=== PATIENT | female | born 1955 | race Caucasian/White ===

== ENCOUNTER 2021-10-04 14:00 | Outpatient (CLI) | payer MEDICARE | END 2021-10-04 14:01 | disposition home or self-care (01) | LOC: CSHWCC 14:00 | PROVIDERS: ATTEND Nurse Practitioner Family | DX: S81.801D Unspecified open wound, right lower leg, subsequent encounter (principal); R60.0 Localized edema | CPT/HCPCS: 11042; 11045; 97139; G0463; 99203 ==

== ENCOUNTER 2021-10-22 14:56 | Outpatient (CLI) | payer MEDICARE | END 2021-10-22 14:57 | disposition home or self-care (01) | LOC: CSHWCC 14:56 | PROVIDERS: ATTEND Nurse Practitioner Family | DX: S81.801D Unspecified open wound, right lower leg, subsequent encounter (principal); R60.0 Localized edema ==

== ENCOUNTER 2021-11-29 10:29 | Outpatient (CLI) | payer MEDICARE | END 2021-11-29 10:30 | disposition home or self-care (01) | LOC: CSHWCC 10:29 | PROVIDERS: ATTEND Preventive Medicine Undersea and Hyperbaric Medicine | DX: S81.801D Unspecified open wound, right lower leg, subsequent encounter (principal); R60.0 Localized edema ==

== ENCOUNTER 2021-12-13 10:34 | Outpatient (CLI) | payer MEDICARE | END 2021-12-13 10:35 | disposition home or self-care (01) | LOC: CSHWCC 10:34 | PROVIDERS: ATTEND Preventive Medicine Undersea and Hyperbaric Medicine | DX: S81.801D Unspecified open wound, right lower leg, subsequent encounter (principal); R60.0 Localized edema | CPT/HCPCS: 97139; G0463; 99213 ==

== ENCOUNTER 2022-03-05 10:35 | Inpatient (IN) | payer MEDICARE ==
[2022-03-05 11:33] LABS: #Monocytes 0.7 10x3/uL (0.0-1.1); %Basophils 0.2 % (0.0-2.0); %Eosinophils 0.1 % (0.0-6.0); %Lymphocytes 3.9 % (18.0-47.0); %Monocytes 4.7 % (0.0-10.0); %Neutrophils 90.6 % (40.0-75.0); Hemoglobin 11.4 g/dL (12.0-15.5); Mean Corpuscular Hemoglobin 35.7 pg (27.0-33.0); Mean Corpuscular Volume 111.6 fl (81.6-98.3); Mean Platelet Volume 9.2 fl (7.4-10.4); Platelet Count 520 10x3/uL (150-450); RBC Distribution Width 16.1 % (11.5-14.5); Red Blood Cell (RBC) Count 3.19 10x6/uL (3.90-5.03); White Blood Cell (WBC) Count 14.3 10x3/uL (3.5-10.5)
[2022-03-05 11:41] LABS: ALT (SGPT) 39 U/L (8-55); AST (SGOT) 88 U/L (5-34); Acetaminophen Less than 10.0 mcg/mL (10.0-30.0); Albumin 3.5 g/dL (3.4-4.8); Alcohol Less than 10 mg/dL (Less than 10); Alkaline Phosphatase 118 U/L (40-110); Anion Gap 59 mmol/L (10-20); BUN (Urea Nitrogen) 39 mg/dL (9.8-20.1); Bilirubin, Total 0.9 mg/dL (0.2-1.2); Calc. Creatinine Clearance 0 mL/min (70-130); Calcium 9.5 mg/dL (7.8-10.44); Chloride 78 mmol/L (98-107); Estimated GFR 21; Globulin 2.7 g/dL (2.4-3.5); Glucose 369 mg/dL (80-115); Lipase 442 U/L (8-78); Potassium 3.4 mmol/L (3.5-5.1); Protein, Total 6.2 g/dL (5.8-8.1); Salicylate Less than 8.0 mg/dL (15.0-30.0); Sodium 142 mmol/L (136-145)
[2022-03-05] MEDS ORDERED: Multivitamins, Adult 10 ML, Thiamine HCl 100 MG, Folic Acid 1 MG in Dextrose 5 %-0.45 %... IV SCH (11:45)
[2022-03-05 11:48] LABS: Carbon Dioxide 8 mmol/L (23-31)
[2022-03-05 12:07] LABS: Anisocytosis SLIGHT = 6-15 cells (100X) (0-5/hpf); Macrocytosis SLIGHT = 6-15 cells (100X) (0-5/hpf)
[2022-03-05 12:08] LABS: Platelet Morphology Comment Appears Increased; Stomatocytes SLIGHT = 2-5 cells (100X) (0-1/hpf)
[2022-03-05] MEDS ORDERED: Insulin Regular 300 UNITS/3 ML VIAL ONE (12:14)
[2022-03-05] MEDS ORDERED: INSULIN REGULAR IN 0.9 % NACL 100 UNIT/100 ML BAG ONE (12:17)
[2022-03-05 12:28] LABS: Actual Bicarbonate (HCO3v) 9 mEq/L (22-28); Base Excess -15.1 mEq/L (-2.0 to +3.0); Calcium, Ionized (venous) 1.15 mmol/L (1.16-1.32); Chloride (VBG) 79 mmol/L (98-106); Hemoglobin (Hb) 12.5 g/dL (11.7-16.1); Potassium (VBG) 3.02 mmol/L (3.70-5.30); Puncture Site Other Site; RapidComm Collect By CBN; Sodium 139.1 mmol/L (133-146); pH (venous) 7.29 (7.32-7.43)
[2022-03-05 12:34] LABS: SARS-CoV-2 NAA Rapid Test Not Detected (NotDetected)
[2022-03-05] MEDS ORDERED: Thiamine HCl 200 MG/2 ML VIAL ONE (12:39)
[2022-03-05] MEDS ORDERED: Electrolyte Replacement Protocol 1 EACH IVPB ONE (12:44)
[2022-03-05] MEDS ORDERED: Lorazepam 1 MG TAB PO PRN (12:44)
[2022-03-05] MEDS ORDERED: Lorazepam 2 MG/ML VIAL IM PRN (12:44)
[2022-03-05] MEDS ORDERED: Sodium Chloride 0.9% 1,000 ML IV PRN ×4 (12:44)
[2022-03-05] MEDS ORDERED: NS 0.9% w/ 20 MEQ KCL 1,000 ML IV PRN (12:44)
[2022-03-05] MEDS ORDERED: Ondansetron ODT 4 MG TAB PO PRN (12:44)
[2022-03-05] MEDS ORDERED: Dextrose 5 %-0.45 % NaCl 1,000 ML IV PRN (12:44)
[2022-03-05] MEDS ORDERED: Lorazepam 1 MG TAB PO SCH (12:45)
[2022-03-05] MEDS ORDERED: Electrolyte Replacement Protocol 1 EACH FS SCH (12:45)
[2022-03-05 13:44] LABS: Anion Gap 55 mmol/L (10-20); BUN (Urea Nitrogen) 40 mg/dL (9.8-20.1); Calc. Creatinine Clearance 0 mL/min (70-130); Calcium 8.9 mg/dL (7.8-10.44); Chloride 82 mmol/L (98-107); Estimated GFR 23; Glucose 324 mg/dL (80-115); Phosphorus 5.9 mg/dL (2.3-4.7); Sodium 142 mmol/L (136-145)
[2022-03-05 13:45] LABS: Magnesium 1.8 mg/dL (1.6-2.6)
[2022-03-05] MEDS ORDERED: INSULIN REGULAR IN 0.9 % NACL 100 UNIT in Premix Bag 1 BAG IVPB SCH (13:45)
[2022-03-05] MEDS ORDERED: Ondansetron PF 4 MG/2 ML Vial ONE (13:48)
[2022-03-05 13:49] LABS: Carbon Dioxide 8 mmol/L (23-31)
[2022-03-05 14:51] VITALS: BMI 22.8
[2022-03-05] MEDS: Nicotine 21 MG PATCH TD SCH (15:16)
[2022-03-05] MEDS: Diazepam 5 MG TAB PO SCH ×2 (15:27→21:16)
[2022-03-05] MEDS ORDERED: Potassium Chloride 20 MEQ in Premix Bag 1 BAG IVPB SCH (16:00)
[2022-03-05] MEDS ORDERED: Magnesium 2 GM/50 ML(in water) 2 GM in Premix Bag 1 BAG IVPB SCH ×2 (16:00→17:00)
[2022-03-05 17:49] LABS: Anion Gap 32 mmol/L (10-20); BUN (Urea Nitrogen) 41 mg/dL (9.8-20.1); Calc. Creatinine Clearance 27 mL/min (70-130); Calcium 8.2 mg/dL (7.8-10.44); Carbon Dioxide 18 mmol/L (23-31); Cardiac Risk 3.9 (Less than 4.5); Chloride 94 mmol/L (98-107); Cholesterol 169 mg/dl (< 200 Desired); Estimated GFR 29; Glucose 205 mg/dL (80-115); HDL Cholesterol 43 mg/dL (>60 Neg Risk); LDL Cholesterol, Calculated 64 mg/dL; Sodium 141 mmol/L (136-145); Triglycerides 311 mg/dL (Less than 150)
[2022-03-05 17:58] LABS: Potassium 2.6 mmol/L (3.5-5.1)
[2022-03-05] MEDS: NS 0.9% w/ 20 MEQ KCL 1,000 ML IV PRN ×2 (18:09→20:13)
[2022-03-05 19:59] LABS: Hemoglobin A1c 4.8 % (4.0-6.0)
[2022-03-05] MEDS: Potassium Chloride 20 MEQ in Premix Bag 1 BAG IVPB SCH ×3 (20:14→23:44)
[2022-03-05] MEDS: D5 1/2 NS w/20 mEq KCL 1,000 ML IV PRN (20:39)
[2022-03-05 21:22] LABS: Anion Gap 14 mmol/L (10-20); BUN (Urea Nitrogen) 40 mg/dL (9.8-20.1); Calc. Creatinine Clearance 35 mL/min (70-130); Calcium 7.7 mg/dL (7.8-10.44); Carbon Dioxide 28 mmol/L (23-31); Chloride 101 mmol/L (98-107); Estimated GFR 40; Glucose 153 mg/dL (80-115); Potassium 3.5 mmol/L (3.5-5.1); Sodium 139 mmol/L (136-145)
[2022-03-06] MEDS: D5 1/2 NS w/20 mEq KCL 1,000 ML IV PRN ×2 (00:42→04:46)
[2022-03-06] MEDS: Diazepam 5 MG TAB PO SCH ×4 (03:03→22:01)
[2022-03-06 04:33] LABS: ALT (SGPT) 25 U/L (8-55); AST (SGOT) 67 U/L (5-34); Albumin 2.3 g/dL (3.4-4.8); Alkaline Phosphatase 81 U/L (40-110); Anion Gap 13 mmol/L (10-20); BUN (Urea Nitrogen) 34 mg/dL (9.8-20.1); Bilirubin, Total 0.3 mg/dL (0.2-1.2); Calc. Creatinine Clearance 42 mL/min (70-130); Calcium 7.7 mg/dL (7.8-10.44); Carbon Dioxide 24 mmol/L (23-31); Chloride 103 mmol/L (98-107); Estimated GFR 50; Globulin 2.1 g/dL (2.4-3.5); Glucose 145 mg/dL (80-115); Magnesium 1.8 mg/dL (1.6-2.6); Potassium 4.9 mmol/L (3.5-5.1); Protein, Total 4.4 g/dL (5.8-8.1); Sodium 135 mmol/L (136-145)
[2022-03-06] MEDS ORDERED: Dextrose 50% Abboject 50 ML SYRINGE IVP PRN (05:45)
[2022-03-06] MEDS ORDERED: Dextrose 5% in Water 1,000 ML IV PRN (05:45)
[2022-03-06] MEDS ORDERED: HumaLOG 300 UNITS/3 ML VIAL SC PRN (05:45)
[2022-03-06] MEDS ORDERED: Magnesium 2 GM/50 ML(in water) 2 GM in Premix Bag 1 BAG IVPB SCH (06:00)
[2022-03-06] MEDS ORDERED: Sodium Chloride 0.9% 1,000 ML IV SCH (06:00)
[2022-03-06] MEDS ORDERED: Lantus 1000 UNITS/10 ML VIAL SC SCH (06:00)
[2022-03-06 06:58] LABS: #Monocytes 0.9 10x3/uL (0.0-1.1); #Neutrophils 14.9 10x3/uL (1.5-8.4); %Basophils 0.2 % (0.0-2.0); %Eosinophils 0.1 % (0.0-6.0); %Lymphocytes 11.1 % (18.0-47.0); Hemoglobin 9.1 g/dL (12.0-15.5); Mean Corpuscular HGB CONC 32.7 g/dL (32.0-36.0); Mean Corpuscular Hemoglobin 35.8 pg (27.0-33.0); Mean Corpuscular Volume 109.4 fl (81.6-98.3); Mean Platelet Volume 9.1 fl (7.4-10.4); Platelet Count 272 10x3/uL (150-450); RBC Distribution Width 16.2 % (11.5-14.5); Red Blood Cell (RBC) Count 2.54 10x6/uL (3.90-5.03)
[2022-03-06] MEDS: Pantoprazole 40 MG VIAL IVP SCH (08:14)
[2022-03-06] MEDS: Folic Acid 1 MG TAB PO SCH (08:15)
[2022-03-06] MEDS: Multivit, Therapeutic 1 TAB PO SCH (08:15)
[2022-03-06] MEDS: Sodium Bicarbonate Tab 325 MG TAB PO SCH (08:15)
[2022-03-06] MEDS ORDERED: Enoxaparin Sodium 30 MG/0.3 ML SYRINGE SC SCH (09:00)
[2022-03-06] MEDS: Thiamine HCl 200 MG/2 ML VIAL SLOW IVP SCH (10:09)
[2022-03-06] MEDS ORDERED: Lorazepam 1 MG TAB PO PRN (12:45)
[2022-03-06] MEDS: Nicotine 21 MG PATCH TD SCH (13:24)
[2022-03-06] MEDS ORDERED: Mag-Al 1200 mg/1200 mg/30 ML UDCUP PO SCH (20:45)
[2022-03-07 04:50] LABS: #Monocytes 0.3 10x3/uL (0.0-1.1); #Neutrophils 7.9 10x3/uL (1.5-8.4); %Basophils 0.1 % (0.0-2.0); %Eosinophils 0.2 % (0.0-6.0); %Lymphocytes 17.9 % (18.0-47.0); %Monocytes 3.4 % (0.0-10.0); Hemoglobin 8.7 g/dL (12.0-15.5); Mean Corpuscular HGB CONC 32.8 g/dL (32.0-36.0); Mean Corpuscular Hemoglobin 35.4 pg (27.0-33.0); Mean Corpuscular Volume 107.7 fl (81.6-98.3); Platelet Count 239 10x3/uL (150-450); RBC Distribution Width 16.1 % (11.5-14.5); Red Blood Cell (RBC) Count 2.46 10x6/uL (3.90-5.03); White Blood Cell (WBC) Count 10.1 10x3/uL (3.5-10.5)
[2022-03-07 05:09] LABS: Anion Gap 13 mmol/L (10-20); BUN (Urea Nitrogen) 20 mg/dL (9.8-20.1); Calc. Creatinine Clearance 67 mL/min (70-130); Calcium 8.3 mg/dL (7.8-10.44); Carbon Dioxide 24 mmol/L (23-31); Chloride 104 mmol/L (98-107); Estimated GFR 88; Glucose 99 mg/dL (80-115); Magnesium 1.9 mg/dL (1.6-2.6); Potassium 4.7 mmol/L (3.5-5.1); Sodium 136 mmol/L (136-145)
[2022-03-07] MEDS: Diazepam 5 MG TAB PO SCH (05:42)
[2022-03-07] MEDS ORDERED: Magnesium 2 GM/50 ML(in water) 2 GM in Premix Bag 1 BAG IVPB SCH (06:00)
[2022-03-07 06:07] LABS: Anisocytosis SLIGHT = 6-15 cells (100X) (0-5/hpf); Hypochromia SLIGHT = 6-15 cells (100X) (0-5/hpf); Macrocytosis SLIGHT = 6-15 cells (100X) (0-5/hpf)
[2022-03-07 06:08] LABS: Large Platelets SLIGHT; Platelet Morphology Comment Appears Adequate; Stomatocytes SLIGHT = 2-5 cells (100X) (0-1/hpf)
[2022-03-07] MEDS ORDERED: Acetaminophen 325 MG TAB PO SCH (07:00)
[2022-03-07 07:19] VITALS: BP 109/88; TEMP 98.1
[2022-03-07] MEDS: Sodium Bicarbonate Tab 325 MG TAB PO SCH (08:01)
[2022-03-07] MEDS: Pantoprazole 40 MG VIAL IVP SCH (08:01)
[2022-03-07] MEDS: Folic Acid 1 MG TAB PO SCH (08:01)
[2022-03-07] MEDS: Multivit, Therapeutic 1 TAB PO SCH (08:01)
[2022-03-07] MEDS: Thiamine HCl 200 MG/2 ML VIAL SLOW IVP SCH (08:02)
[2022-03-07] MEDS ORDERED: Enoxaparin Sodium 40 MG/0.4 ML SYRINGE SC SCH (09:00)
[2022-03-07] MEDS ORDERED: Lorazepam 1 MG TAB PO PRN (12:45)
[2022-03-07] MEDS ORDERED: Lorazepam 0.5 MG TAB PO SCH (12:45)
[2022-03-07] MEDS ORDERED: Diazepam 5 MG TAB PO SCH (14:30)
[2022-03-08] MEDS ORDERED: Lorazepam 0.5 MG TAB PO PRN (12:45)
[2022-03-09] MEDS ORDERED: Thiamine 100 MG TAB PO SCH (09:00)
[2022-03-09] MEDS ORDERED: Diazepam 2 MG TAB PO SCH (14:30)
== END 2022-03-07 12:11 | disposition home or self-care (01) | DRG 637 ==
LOC: CSHERS 10:35 → CSHIMCU 14:07
PROVIDERS: ADMIT Internal Medicine; ATTEND Internal Medicine
DX: E11.10 Type 2 diabetes mellitus with ketoacidosis without coma (principal); G93.41 Metabolic encephalopathy; K85.90 Acute pancreatitis without necrosis or infection, unspecified; N17.9 Acute kidney failure, unspecified; I10 Essential (primary) hypertension; F32.A Depression, unspecified; E86.0 Dehydration; K21.9 Gastro-esophageal reflux disease without esophagitis; F17.210 Nicotine dependence, cigarettes, uncomplicated; Z20.822 Contact with and (suspected) exposure to COVID-19; F41.1 Generalized anxiety disorder; E78.5 Hyperlipidemia, unspecified; E87.6 Hypokalemia; F10.10 Alcohol abuse, uncomplicated; D64.9 Anemia, unspecified; Z88.0 Allergy status to penicillin; Z79.82 Long term (current) use of aspirin; Z90.49 Acquired absence of other specified parts of digestive tract
CPT/HCPCS: 36415; 36416; 71046; 76705; 80048; 80053; 80061; 80307; 82010; 82140; 82805; 83036; 83690; 83735; 84100; 84484; 85025; 93005; 96361; 96374; 96375; C9113; J1650; J1815; J2405; J3411; J3475; J3480; J7042; J7050